=== PATIENT | male | born 1975 | race Caucasian/White ===

== ENCOUNTER → 2016-07-28 | Outpatient (CLI) | payer BC ==
--- NOTE | 2016-07-29 08:44 | PULMONARY FUNCTION TEST ---
CLINICAL DATA: A 41-year-old male with height of 72 inches and a weight of [address] Alfie Diez for evaluation of shortness of breath and cough. Spirometry pre- and post-bronchodilator, lung volumes, and diffusion capacity were performed. FINDINGS: Pre-bronchodilator spirometry demonstrates mild obstructive airways disease. FVC was 92% of predicted. FEV1 was 88% of predicted. [id number] was 51% of predicted. There was improvement after inhaled bronchodilator. FVC improved 5% to 96% of predicted. FEV1 improved 12% to 90% of predicted. [id number] improved 42% to 73% of predicted. Lung volumes show reduction in expiratory reserve volume consistent with the patient's weight. There was a slight increase in his residual volume possibly indicating mild air trapping. Diffusion capacity was normal. IMPRESSION: Mild obstructive airways disease with improvement after inhaled bronchodilator consistent with asthma.
== END | disposition home or self-care (01) ==
LOC: C.RC 09:11
PROVIDERS: ATTEND Family Medicine
DX: R06.02 Shortness of breath (principal)

== ENCOUNTER → 2017-10-19 | Outpatient (CLI) | payer BC ==
[2017-10-19 18:38] LABS: BASO % 0.6 %; BASO ABS # 0.03 K/uL (0-0.2); EOS % 2.8 %; EOS ABS # 0.15 K/uL (0-0.5); HEMATOCRIT 45.8 % (42-52); HEMOGLOBIN 16.3 g/dL (14.0-18.0); IG# 0.01 K/uL (0.00-0.02); LYMPH % 27.1 %; LYMPH ABS # 1.47 K/uL (1.2-3.4); MEAN CELL VOLUME 88.1 fL (80-100); MEAN CORPUSCULAR HEMOGLOBIN 31.3 pg (25-34); MEAN CORPUSCULAR HGB CONC 35.6 g/dl (32-36); MEAN PLATELET VOLUME 10.4 fL (7.4-10.4); MONO % 13.1 %; MONO ABS # 0.71 K/uL (0.11-0.59); NEUT % 56.2 %; NEUT ABS # 3.05 K/uL (1.4-6.5); PLATELET COUNT 208 K/uL (130-400); RED CELL DISTRIBUTION WIDTH CV 12.6 % (11.5-14.5); RED CELL DISTRIBUTION WIDTH SD 40.5 fL (36.4-46.3); WHITE BLOOD COUNT 5.42 K/uL (4.8-10.8)
[2017-10-19 18:50] LABS: ALKALINE PHOSPHATASE 54 U/L (45-117); ALT/SGPT 45 U/L (12-78); AST/SGOT 25 U/L (15-37); BLOOD UREA NITROGEN 15 mg/dl (7-18); CARBON DIOXIDE 25 mmol/L (21-32); CREATININE 1.06 mg/dl (0.60-1.40); GLUCOSE 97 mg/dl (70-99); POTASSIUM 3.9 mmol/L (3.5-5.1); SODIUM 137 mmol/L (136-145); TOTAL PROTEIN 7.8 gm/dl (6.4-8.2)
== END | disposition home or self-care (01) ==
LOC: C.LABSPEC 17:58
PROVIDERS: ATTEND Family Medicine
DX: M25.50 Pain in unspecified joint (principal)